=== PATIENT | female | born 1965 | race Caucasian/White ===

== ENCOUNTER → 2018-06-01 | Outpatient (CLI) | payer OTHER ==
[~2018-06-01] MED LIST: ALTACE10 MG PO; ASPIR-LOW81 MG PO; CIPRO500 MG PO; FLAGYL500 MG PO; FLECAINIDE ACET50 M1 PO; ONDANSETRON HCL4 M2 PO
== END ==
LOC: M.RAD 07:20
DX: Z12.31 Encounter for screening mammogram for malignant neoplasm of breast (principal)

== ENCOUNTER 2018-06-26 14:13 | Emergency (ER) | payer OTHER ==
[~2018-06-26] VITALS: Ht 160 cm; Wt 59.0 kg
[2018-06-26] MEDS ORDERED: ALTACE10 MG PO (14:25)
[2018-06-26] MEDS ORDERED: FLECAINIDE ACET50 M1 PO (14:25)
[2018-06-26] MEDS ORDERED: ASPIR-LOW81 MG PO (14:25)
[2018-06-26 15:12] LABS: HEMOGLOBIN 12.3 gm/dL (12.0-15.0); MCH 29.3 pg (26.0-34.0); MCHC 32.3 g/dL (28.0-37.0); MCV 90.5 fL (80.0-100.0); MPV 7.8 fl. (7.2-11.1); NUCLEATED RBCS 0 /100WBC; PLATELET COUNT* 426 thou/uL (150-400); RDW-CV 13.1 % (10.5-14.5); WBC 29.6 thou/uL (4.0-11.0)
[2018-06-26 15:26] LABS: ANION GAP 5 mmol/L (7-16); BUN 16 mg/dL (7-18); CALCIUM 8.5 mg/dL (8.5-10.1); CHLORIDE 103 mmol/L (98-107); CO2 29 mmol/L (21-32); CREATININE 0.8 mg/dL (0.6-1.3); GLUCOSE 127 mg/dL (70-99); POTASSIUM 3.5 mmol/L (3.5-5.1); SODIUM 137 mmol/L (136-145)
[2018-06-26 15:34] LABS: ALBUMIN 2.6 g/dL (3.4-5.0); ALKALINE PHOSPHATASE 77 U/L (46-116); SGOT 38 U/L (15-37); SGPT 71 U/L (30-65); TOTAL BILIRUBIN 0.3 mg/dL (<0.1-1.0); TROPONIN-I LEVEL <0.06 ng/mL (<0.06)
[2018-06-26 15:38] LABS: ABSOLUTE MONOCYTES 1.2 thou/uL (0.0-1.2); ABSOLUTE NEUTROPHILS 25.5 thou/uL (1.6-8.1); ATYPICAL LYMPHS 1 %; PLATELET ESTIMATE ADEQUATE
--- NOTE | 2018-06-26 16:36 | EKG ---
[place] [address] ELECTROCARDIOGRAM REPORT Name: ZAHEER ABBOTT Room: [facility]#: [id number] Admission: 06/26/18 Attend Phys: Discharge: Date of : 65 Report #: [id number] THIS REPORT FOR: //name// [facility] ED Test Date: 2018-06-26 Test Time: 14:55:36 Pat Name: ZAHEER HOPKINSIOTT NGUYEN Department: Room: Gender: F [employer] Worker: : 1965 Requested By: Bernie Loera Order Number: [id number] MD: Sloan Moreno Measurements Intervals [place] Rate: 111 P: 77 NM: 141 QRS: 81 QRSD: 95 T: 3 QT: 342 QTc: 465 Interpretive Statements Sinus tachycardia Right atrial enlargement No previous ECG available for comparison Electronically Signed On 06-26-2018 16:36:43 CDT by Sloan Moreno [email or web address] <ELECTRONICALLY SIGNED> By: Sloan Moreno MD, [facility] 06/26/18 1636 1455 1455 Sloan Moreno MD, FACC /EPI
[2018-06-26] MEDS ORDERED: CIPRO500 MG PO (17:00)
[2018-06-26] MEDS ORDERED: FLAGYL500 MG PO (17:00)
[2018-06-26] MEDS ORDERED: ONDANSETRON HCL4 M2 PO (17:01)
[2018-06-26 17:44] VITALS: BP 106/73
== END 2018-06-26 17:46 | disposition home or self-care (01) ==
LOC: M.ERS 14:13
PROVIDERS: Nurse Practitioner Family
DX: Z88.2 Allergy status to sulfonamides (principal); K52.9 Noninfective gastroenteritis and colitis, unspecified

== ENCOUNTER → 2019-07-01 | Outpatient (CLI) | payer BC, OTHER | LOC: M.RAD 07:50 | DX: Z12.31 Encounter for screening mammogram for malignant neoplasm of breast (principal) ==

== ENCOUNTER → 2020-08-04 | Outpatient (CLI) | payer BC, OTHER | LOC: M.RAD 09:48 | PROVIDERS: ATTEND Internal Medicine | DX: Z12.31 Encounter for screening mammogram for malignant neoplasm of breast (principal) ==

== ENCOUNTER → 2020-08-10 | Outpatient (CLI) | payer BC, OTHER | LOC: M.ULTRA 08:54 | PROVIDERS: ATTEND Internal Medicine | DX: N63.10 Unspecified lump in the right breast, unspecified quadrant (principal) ==